=== PATIENT | female | born 1990 | race Two or more races ===

== ENCOUNTER 2023-12-31 01:32 | Emergency (ER) | payer MEDICAID, OTHER ==
[~2023-12-31] VITALS: Ht 177.8 cm; Wt 67.7 kg
[2023-12-31 01:59] VITALS: BP 112/89; PULSE 110; RESP 20; TEMP 98.7; O2SAT 96
[2023-12-31] MEDS ORDERED: IBUP-1454 PO (02:08)
== END 2023-12-31 02:14 | disposition home or self-care (01) ==
LOC: ER 01:32
DX: S00.83XA Contusion of other part of head, initial encounter (principal); W18.09XA Striking against other object with subsequent fall, initial encounter; Y93.89 Activity, other specified; Y92.89 Other specified places as the place of occurrence of the external cause; Y99.8 Other external cause status